=== PATIENT | female | born 1945 | race Caucasian/White ===

== ENCOUNTER 2016-10-21 16:11 | Emergency (ER) | payer MEDICARE ==
[~2016-10-21] VITALS: Ht 152.4 cm; Wt 46.4 kg
[2016-10-21 16:23] VITALS: BP 154/83; PULSE 75; RESP 14; O2SAT 98
--- NOTE | 2016-10-21 17:22 | DRSVH ---
PROCEDURE: X-RAY LEFT KNEE, THREE VIEWS ([id number]) INDICATIONS: Fall on hard floor, swelling TECHNIQUE: 3 views of the knee were acquired. COMPARISON: None. FINDINGS: Bones: No fractures or dislocations. No suspicious bony lesions. Soft tissues: Trace joint effusion. No suspicious soft tissue calcifications. IMPRESSION: No fracture. Trace joint effusion. Dictated by: Galen Valderrama M.D. on 10/21/2016 at 17:17 Approved by: Galen Valderrama M.D. on 10/21/2016 at 17:20
--- NOTE | 2016-10-21 18:20 | ED.REPORT ---
HPI-Extremity Problem Lower Date of Service October 21, 2016 ED Provider: Raymond Herrera PA-C Luna is a 71-year-old female with a history of hypertension and osteopenia presenting with chief complaint of left knee pain. The pain began last night when she tripped and fell landing on her left knee on a linoleum floor. She then fell to her left side. Immediately since pain in her knee. Treated with ice, elevation, compression, Arnica. She now notes a clicking or popping sensation along the lateral joint line. She is able to bear weight on the knee and denies new numbness, tingling or coldness in her left foot. She has some chronic numbness in her lateral left foot due to an old fracture. Nursing Notes Stated Complaint: FELL, HURT LEFT KNEE Chief Complaint: Extremity Trauma Nursing Notes Reviewed: Yes Allergies: Coded Allergies: No Known Allergies (Unverified , 10/21/16) General Time Seen by MD: 17:05 Chief Complaint Knee injury left Past Medical History Past Medical History Notes: Osteopenia, hypertension Review of Systems Negative unless stated otherwise in history of present illness Physical Exam General: Well appearing, well developed, well nourished, no acute distress. Left hip: Normal to inspection, full range of motion, mild tenderness along the sciatic nerve. Left knee: Small, light bruise at the center of the patella. Mild to moderate tenderness along the lateral joint line. Negative tenderness over patella, medial joint line, tibial tuberosity. No effusion noted. no redness or swelling. No Swartz's cyst noted. No laxity noted with anterior drawer, posterior drawer, varus or valgus stress. Left ankle: Normal to inspection, nontender, full range of motion, DP and PT pulses 2+. Brisk capillary refill and sensation intact. Head: Atraumatic, normocephalic. Eyes: No scleral icterus or injection. No discharge. Vision grossly intact. ENT: Voice clear, hearing grossly intact. Respiratory: No respiratory distress, no increased work of breathing. Speaks in complete sentences. Skin: Warm and dry. Neurological: Mildly antalgic gait. Grossly nonfocal. Psychological: alert and oriented. Speech appropriate, linear and logical. Behavior appropriate. Initial Vital Signs Vital Signs (First) Date Time Temp Pulse Resp B/P Pulse Ox O2 Delivery O2 Flow Rate FiO2 10/21/16 16:23 36.9 75 14 154/83 98 Room Air Initial VS: Vital signs abnormal (elevated blood pressure.) Interpretation & Diagnostics X-Ray Interpretation Xray Interpretation: PROCEDURE: X-RAY LEFT KNEE, THREE VIEWS ([id number]) INDICATIONS: Fall on hard floor, swelling IMPRESSION: No fracture. Trace joint effusion. Interpretation / Wet Read by: Interpret - Radiologist, Wes - DENG Re-Eval/Medical Decision Med Decision/Clinical Course 71-year-old female with a history of osteopenia presents for left knee pain which occurred after she tripped and fell on a linoleum floor. Appears to be a mechanical fall and no concern for syncope, presyncope confusion. X-rays reveal no fracture, physical examination reveals circulation and sensation intact distal, lateral joint line tenderness, negative laxity. Ankle and hip appear normal. She ambulates well after application of Storm wrap. At this point I am reassured this is a not a fracture or a spontaneously reduced dislocation which could result in vascular compromise. I believe this is most likely a lateral meniscus injury. Advise regarding [id number] analgesia, rest, ice, compression, elevation. Advised regarding primary care follow-up, emergency return precautions. Patient verbalizes understanding of and consent to the plan Discharge & Departure Impression: Primary Impression: Contusion of knee, left Disposition: Home Discharge Condition All VS Reviewed: Yes Condition: Stable Patient Instructions: Contusions in Adults (ED) Additional Instructions: Evaluation in the emergency department for left knee pain includes history, physical examination x-ray, all of which are reassuring that you do not have a fracture or vascular damage to your knee. I believe this is a soft tissue injury to urinate, most likely to your lateral meniscus. We have put your knee in an storm wrap. Your welcome to remove this to bathe. You may find crutches that you already own helpful, but I do not believe they are absolutely necessary. Elevate the leg hour above the level of the heart several times a day to reduce inflammation. The pain is best treated with 600 mg of ibuprofen (Advil, Motrin) every 8 hours , or 650 mg of acetaminophen (Tylenol) every 8 hours. These drugs can be taken at the same time for more severe pain. Follow-up with your primary care provider early next week to reassess injury and consider an orthopedic referral. Return to emergency department for any new or worsening symptoms including increasing pain or the development of a cold and numb foot Referrals: Kiley Anguiano MD (PCP) EDSupervising Provider for APC: Megan Osorio MD copies to: Kiley Anguiano MD, Seth PA-C October 21, 2016 18:20
== END 2016-10-21 18:49 | disposition home or self-care (01) ==
LOC: SED 16:11
DX: S80.02XA Contusion of left knee, initial encounter (principal); W01.0XXA Fall on same level from slipping, tripping and stumbling without subsequent striking against object, initial encounter; Y92.009 Unspecified place in unspecified non-institutional (private) residence as the place of occurrence of the external cause; Y93.9 Activity, unspecified; Y99.8 Other external cause status; I10 Essential (primary) hypertension